=== PATIENT | female | born 1985 | race Caucasian/White ===

== ENCOUNTER 2017-01-11 06:11 | Inpatient (IN) | payer MEDICAID ==
[2017-01-08 10:50] LABS: APPEARANCE,URINE SLIGHTLY-CLOUDY; BILIRUBIN,URINE NEGATIVE (NEGATIVE); GLUCOSE, URINE NEGATIVE (NEGATIVE); KETONES,URINE NEGATIVE (NEGATIVE); LEUKOCYTE ESTERASE,URINE TRACE (NEGATIVE); NITRITE,URINE NEGATIVE (NEGATIVE); PROTEIN,URINE NEGATIVE (NEGATIVE); URINE SPECIFIC GRAVITY 1.005; UROBILINOGEN,URINE NEGATIVE mg/dL (<2.0)
[2017-01-08 11:00] LABS: URINE BARBITURATES SCREEN NEGATIVE; URINE METHADONE SCREEN NEGATIVE; URINE OPIATES LOW NEGATIVE; URINE PHENCYCLIDINE SCREEN NEGATIVE
[2017-01-08 12:28] LABS: ABSOLUTE EOSINOPHILS # (AUTO) 0.1 10^3/uL (0.0-0.6); ABSOLUTE LYMPHOCYTES (AUTO) 1.7 10^3/uL (0.5-4.7); ABSOLUTE MONOCYTES (AUTO) 0.8 10^3/uL (0.1-1.4); ABSOLUTE NEUT (AUTO) 6.9 10^3/uL (1.7-8.2); BASOPHILS % (AUTO) 0.3 % (0-2); EOSINOPHILS % (AUTO) 0.5 % (0-6); HEMATOCRIT 37.1 % (36.0-47.0); HEMOGLOBIN 12.3 g/dL (12.0-15.5); HGB HCT DIFFERENCE -0.2; LYMPHOCYTES % (AUTO) 18.2 % (13-45); MEAN CORPUSCULAR HGB CONC 33.2 g/dL (32.0-36.0); MEAN CORPUSCULAR VOLUME 93 fl (80-97); MONOCYTES % (AUTO) 8.1 % (3-13); RED BLOOD COUNT 3.97 10^6/uL (3.72-5.28); RED CELL DISTRIBUTION WIDTH 13.9 % (11.5-14.0); SEGMENTED NEUTROPHILS % (AUTO) 72.9 % (42-78); WHITE BLOOD COUNT 9.5 10^3/uL (4.0-10.5)
[2017-01-11] MEDS ORDERED: RINGERS SOLUTION,LACTATED 2,000 ML IV PRN (06:35)
[2017-01-11] MEDS ORDERED: CEFAZOLIN 1 GM/D5W RTU 1 GM/50 ML RTUPB IV PRN (06:45)
[2017-01-11] MEDS ORDERED: OXYTOCIN 10 UNIT/ML VIAL ONE (09:57)
[2017-01-11] MEDS ORDERED: PROPOFOL INJ 200 MG/20 ML VIAL IV ONE (09:58)
[2017-01-11] MEDS ORDERED: MORPHINE SULFATE 10 MG/ML INJ ONE (09:58)
[2017-01-11] MEDS ORDERED: MIDAZOLAM 2 MG/2 ML INJ ONE (09:58)
[2017-01-11] MEDS ORDERED: FENTANYL CITRATE INJ/PF 100 MCG/2 ML AMPUL ONE (10:36)
[2017-01-11] MEDS ORDERED: LIDOCAINE 2% INJ-PF (20 MG/ML) 10 ML AMPUL ONE ×3 (12:25→12:27)
[2017-01-11] MEDS ORDERED: PHENYLEPHRINE HCL INJ/PF 10 MG/1 ML SDV ONE (12:27)
[2017-01-11] MEDS ORDERED: METOCLOPRAMIDE HCL INJ/PF 10 MG/2 ML SDV ONE (12:27)
[2017-01-11] MEDS ORDERED: ONDANSETRON HCL INJ/PF 4 MG/2 ML SDV ONE (12:27)
[2017-01-11] MEDS ORDERED: ACETAMINOPHEN 100 ML IV ONE (12:32)
[2017-01-11] MEDS ORDERED: OXYTOCIN/NORMAL SALINE 0 UNIT/0 ML RTUINJ ONE (13:39)
[2017-01-11] MEDS ORDERED: OXYCODONE-ACETAMINOPHEN 5-325 MG TABLET PO PRN (13:59)
[2017-01-11] MEDS ORDERED: PROMETHAZINE HCL INJ 25 MG/1 ML VIAL IM PRN (13:59)
[2017-01-11] MEDS ORDERED: HYDROMORPHONE HCL INJ/PF 2 MG/ML AMPULE IV PRN (13:59)
[2017-01-11] MEDS ORDERED: DIPH/PERTUSS(ACELL)/TETANUS VAC/PF 0.5 ML SYR (>=10YO) IM PRN (13:59)
[2017-01-11] MEDS ORDERED: ACETAMINOPHEN 325 MG TABLET PO PRN (13:59)
[2017-01-11] MEDS ORDERED: OXYTOCIN/NORMAL SALINE 20 UNIT/1,000 ML RTUINJ INJ PRN (13:59)
[2017-01-11] MEDS ORDERED: MEASLES,MUMPS&RUBELLA VACC/PF 0.5 ML VIAL SUBCUT PRN (13:59)
[2017-01-11] MEDS ORDERED: KETOROLAC TROMETHAMINE INJ/PF 30 MG/1 ML SDV ONE (14:40)
[2017-01-11] MEDS ORDERED: METHYLERGONOVINE MALEATE INJ/PF 0.2 MG/1 ML AMPULE ONE (14:51)
[2017-01-11] MEDS ORDERED: METHYLERGONOVINE MALEATE INJ/PF 0.2 MG/1 ML AMPULE IM ONE (15:30)
[2017-01-11] MEDS: OXYCODONE-ACETAMINOPHEN 5-325 MG TABLET PO PRN (17:58)
[2017-01-11] MEDS: DOCUSATE SODIUM 100 MG CAPSULE PO SCH (17:59)
[2017-01-11] MEDS ORDERED: IBUPROFEN 800 MG TABLET PO SCH (18:00)
[2017-01-11] MEDS ORDERED: OXYTOCIN/NORMAL SALINE 20 UNIT/1,000 ML RTUINJ ONE (18:31)
[2017-01-11] MEDS: SIMETHICONE 80 MG TAB.CHEW PO PRN (18:35)
[2017-01-11] MEDS: KETOROLAC TROMETHAMINE INJ/PF 30 MG/1 ML SDV IV SCH (21:41)
[2017-01-12] MEDS: OXYCODONE-ACETAMINOPHEN 5-325 MG TABLET PO PRN ×3 (00:14→21:37)
[2017-01-12] MEDS ORDERED: LIDOCAINE 0.5% INJ-PF (5 MG/ML) 50 ML SDV SUBCUT PRN (05:00)
[2017-01-12] MEDS ORDERED: NORMAL SALINE 1000 ML (RENAL PATIENTS) IV PRN (05:00)
[2017-01-12] MEDS ORDERED: LACTATED RINGERS 1000 ML IV PRN (05:00)
[2017-01-12] MEDS: KETOROLAC TROMETHAMINE INJ/PF 30 MG/1 ML SDV IV SCH (06:01)
[2017-01-12 07:19] LABS: HEMATOCRIT 35.4 % (36.0-47.0); HEMOGLOBIN 11.7 g/dL (12.0-15.5); HGB HCT DIFFERENCE -0.3; MEAN CORPUSCULAR HEMOGLOBIN 30.9 pg (27.0-33.4); MEAN CORPUSCULAR VOLUME 94 fl (80-97); RED BLOOD COUNT 3.78 10^6/uL (3.72-5.28); RED CELL DISTRIBUTION WIDTH 13.7 % (11.5-14.0); WHITE BLOOD COUNT 11.8 10^3/uL (4.0-10.5)
--- NOTE | 2017-01-12 09:35 | PDOC PROGRESS REPORT ---
Subjective Progress Note for:: 01/12/17 Subjective:: Doing well. Physical Exam - Physical Exam Vital Signs: Temp Pulse Resp BP Pulse Ox 98.0 F 76 16 100/58 L 98 01/12/17 08:17 01/12/17 08:17 01/12/17 08:17 01/12/17 08:17 01/12/17 08:17 Intake & Output 01/11/17 01/12/17 01/13/17 06:59 06:59 06:59 Intake Total 4125 Output Total 2525 Balance 1600 Weight 98 kg General appearance: PRESENT: no acute distress Head exam: PRESENT: atraumatic - dressing dry Result Laboratory Results: 01/12/17 06:57 01/12/17 06:57 WBC 11.8 H RBC 3.78 Hgb 11.7 L Hct 35.4 L MCV 94 MCH 30.9 MCHC 33.0 RDW 13.7 Plt Count 192 Assessment & Plan - Diagnosis (1) S/P Is this a current diagnosis for this admission?: YesPlan: continue post operative care
[2017-01-12] MEDS: PRENATAL VITAMIN W-O CA NO5/FE FUMARATE/FA CAPSULE PO SCH (09:54)
[2017-01-12] MEDS: DOCUSATE SODIUM 100 MG CAPSULE PO SCH ×2 (09:54→17:23)
[2017-01-12] MEDS: SIMETHICONE 80 MG TAB.CHEW PO PRN (11:20)
[2017-01-12] MEDS: IBUPROFEN 800 MG TABLET PO SCH ×3 (12:10→23:27)
[2017-01-12] MEDS ORDERED: BISACODYL 10 MG SUPP.RECT PR PRN (19:03)
[2017-01-12] MEDS ORDERED: BISACODYL 10 MG SUPP.RECT PR ONE (19:30)
--- NOTE | 2017-01-12 19:44 | RADIOLOGY REPORT (SQ) ---
EXAM DESCRIPTION: ABDOMEN 2 VIEWS COMPLETED DATE/TIME: 01/12/2017 7:32 pm REASON FOR STUDY: abdominal pain O34.219 MATERNAL CARE FOR UNSP TYPE SCAR FROM PREVIOUS CELIA COMPARISON: None. NUMBER OF VIEWS: Two views. TECHNIQUE: Supine and erect/decubitus radiographic images of the abdomen acquired. LIMITATIONS: None. FINDINGS: FREE AIR: None. No abnormal gas collections. LUNG BASES: Clear. BOWEL GAS PATTERN: There is dilatation of both large and small bowel. Scattered air-fluid levels on the upright view. This most likely represents ileus. Surveillance films are recommended. CALCIFICATIONS: No suspicious calcifications. SOFT TISSUES: No gross mass or suggestion of organomegaly. HARDWARE: None in the abdomen. BONES: No acute fracture. No worrisome bone lesions. OTHER: No other significant finding. IMPRESSION: Probable ileus with dilated large and small bowel. Surveillance films are recommended. TECHNICAL DOCUMENTATION: JOB ID: [id number] [employer]- All Rights Reserved
[2017-01-13 06:02] LABS: ABSOLUTE EOSINOPHILS # (AUTO) 0.2 10^3/uL (0.0-0.6); ABSOLUTE LYMPHOCYTES (AUTO) 2.4 10^3/uL (0.5-4.7); ABSOLUTE MONOCYTES (AUTO) 0.9 10^3/uL (0.1-1.4); ABSOLUTE NEUT (AUTO) 8.3 10^3/uL (1.7-8.2); BASOPHILS % (AUTO) 0.4 % (0-2); EOSINOPHILS % (AUTO) 1.5 % (0-6); HEMATOCRIT 31.6 % (36.0-47.0); HEMOGLOBIN 10.6 g/dL (12.0-15.5); HGB HCT DIFFERENCE 0.2; LYMPHOCYTES % (AUTO) 20.2 % (13-45); MEAN CORPUSCULAR HEMOGLOBIN 31.1 pg (27.0-33.4); MEAN CORPUSCULAR HGB CONC 33.4 g/dL (32.0-36.0); MEAN CORPUSCULAR VOLUME 93 fl (80-97); MONOCYTES % (AUTO) 7.3 % (3-13); RED BLOOD COUNT 3.39 10^6/uL (3.72-5.28); RED CELL DISTRIBUTION WIDTH 13.8 % (11.5-14.0); SEGMENTED NEUTROPHILS % (AUTO) 70.6 % (42-78); WHITE BLOOD COUNT 11.7 10^3/uL (4.0-10.5)
[2017-01-13] MEDS: IBUPROFEN 800 MG TABLET PO SCH ×4 (06:11→23:54)
[2017-01-13 06:15] LABS: ANION GAP 6 (5-19); BLOOD UREA NITROGEN 10 mg/dL (7-20); CALCIUM 8.7 mg/dL (8.4-10.2); CARBON DIOXIDE 25 mmol/L (22-30); CHLORIDE 107 mmol/L (98-107); CREATININE RESULT 0.62 mg/dL (0.52-1.25); GLUCOSE 85 mg/dL (75-110); POTASSIUM 3.9 mmol/L (3.6-5.0); SODIUM 137.5 mmol/L (137-145)
[2017-01-13] MEDS: DOCUSATE SODIUM 100 MG CAPSULE PO SCH ×2 (09:28→17:41)
[2017-01-13] MEDS: PRENATAL VITAMIN W-O CA NO5/FE FUMARATE/FA CAPSULE PO SCH (09:28)
--- NOTE | 2017-01-13 09:51 | PDOC PROGRESS REPORT ---
Subjective-OB Subjective: Post Delivery Day: 2 31 year old. Denies any needs at this time, states lochia is stable, pain is well controlled, voiding without difficulty. Feeling a little gas. Physical Exam (OB) Vital Signs: Temp Pulse Resp BP Pulse Ox 97.4 F 68 16 103/55 L 98 01/13/17 08:16 01/13/17 08:16 01/13/17 08:16 01/13/17 08:16 01/13/17 08:16 Intake & Output 01/12/17 01/13/17 01/14/17 06:59 06:59 06:59 Intake Total 4125 Output Total 2525 Balance 1600 Weight 98 kg - PIH/Pre-Eclampsia Clonus: Negative - Dressing Removed: No Incision: Dressing Closure Type: opsite - Lochia Lochia Amount: Scant < 10 ml Lochia Color: Rubra/Red - Abdomen Description: Tender, Soft Hernia Present: No Fundal Description: Firm, Midline Fundal Height: u/u - u/2 Objective-Diagnostic Laboratory: 01/13/17 05:50 01/13/17 05:50 01/13/17 01/13/17 05:50 05:50 WBC 11.7 H RBC 3.39 L Hgb 10.6 L Hct 31.6 L MCV 93 MCH 31.1 MCHC 33.4 RDW 13.8 Plt Count 178 Seg Neutrophils % 70.6 Lymphocytes % 20.2 Monocytes % 7.3 Eosinophils % 1.5 Basophils % 0.4 Absolute Neutrophils 8.3 H Absolute Lymphocytes 2.4 Absolute Monocytes 0.9 Absolute Eosinophils 0.2 Absolute Basophils 0.0 Sodium 137.5 Potassium 3.9 Chloride 107 Carbon Dioxide 25 Anion Gap 6 BUN 10 Creatinine 0.62 Est GFR ( Amer) > 60 Est GFR (Non-Af Amer) > 60 Glucose 85 Calcium 8.7 Assessment and Plan(PN) - Assessment and Plan (1) Postoperative ileus Is this a current diagnosis for this admission?: YesPlan: ducolox (2) S/P Is this a current diagnosis for this admission?: YesPlan: routine post op care - Time Spent with Patient Time with patient: Less than 15 minutes Critical Time spent with patient: Less than 15 minutes Medications reviewed and adjusted accordingly: Yes - Disposition Anticipated Discharge: Home Within: within 24 hours
[2017-01-13] MEDS: OXYCODONE-ACETAMINOPHEN 5-325 MG TABLET PO PRN (16:30)
[2017-01-13] MEDS: SIMETHICONE 80 MG TAB.CHEW PO PRN (17:42)
[2017-01-14] MEDS: OXYCODONE-ACETAMINOPHEN 5-325 MG TABLET PO PRN ×2 (03:58→08:56)
[2017-01-14] MEDS: IBUPROFEN 800 MG TABLET PO SCH ×2 (05:53→11:46)
[2017-01-14] MEDS: DOCUSATE SODIUM 100 MG CAPSULE PO SCH (08:56)
[2017-01-14] MEDS: PRENATAL VITAMIN W-O CA NO5/FE FUMARATE/FA CAPSULE PO SCH (09:00)
--- NOTE | 2017-01-14 10:37 | PDOC PROGRESS REPORT ---
Subjective-OB Subjective: Post Delivery Day: 31 year old. Denies any needs at this time Pumping breasts, ready to go home, passing gas and had BM, pain improved, ambulating, voiding, taking regular diet well and liquids, breast/bottle feeding Physical Exam (OB) Vital Signs: Temp Pulse Resp BP Pulse Ox 98.3 F 88 16 115/78 95 01/14/17 07:53 01/14/17 07:53 01/14/17 07:53 01/14/17 07:53 01/14/17 07:53 - PIH/Pre-Eclampsia Clonus: Negative - Dressing Removed: No Incision: Dressing Closure Type: opsite - Lochia Lochia Amount: Scant < 10 ml Lochia Color: Rubra/Red - Abdomen Description: Tender, Soft Hernia Present: No Fundal Description: Firm, Midline Fundal Height: u/u - u/2 Objective-Diagnostic Laboratory: 01/13/17 05:50 01/13/17 05:50 Assessment and Plan(PN) - Assessment and Plan (1) S/P Is this a current diagnosis for this admission?: Yes (2) Postoperative ileus Is this a current diagnosis for this admission?: Yes - Time Spent with Patient Time with patient: Less than 15 minutes Medications reviewed and adjusted accordingly: Yes - Disposition Anticipated Discharge: Home Within: Other - home today
--- NOTE | 2017-01-14 10:43 | PDOC DISCHARGE SUMMARY ---
Final Diagnosis Discharge Date: 01/14/17 - Final Diagnosis (1) S/P Is this a current diagnosis for this admission?: Yes (2) Postoperative ileus Is this a current diagnosis for this admission?: Yes Discharge Data - Discharge Medication Home Medications: Pnv No.122/Iron/Folic Acid [ Multi Tablet] 1 tab PO DAILY 01/08/17 Ibuprofen [Motrin 800 mg Tablet] 800 mg PO Q6 #60 tablet 01/14/17 Oxycodone HCl/Acetaminophen [Percocet 5-325 mg Tablet] 1 tab PO Q4HP PRN #30 tablet 01/14/17 Pnv W-O Ca No5/Fe Fumarate/FA [-U Multiple Vitamin Capsule] 1 cap PO DAILY #0 capsule 01/14/17 Gestational Age: 39 Reason(s) for Admission: Ceasarean Section-Repeat Procedures: NST, Ultrasound Intrapartum Procedure(s): : Low Cervical, Transverse - [place] Data Baby 1 Female Home with Mother: Yes - Diagnosis Test Laboratory: Temp Pulse Resp BP Pulse Ox 98.3 F 88 16 115/78 95 01/14/17 07:53 01/14/17 07:53 01/14/17 07:53 01/14/17 07:53 01/14/17 07:53 01/08/17 01/08/17 01/12/17 09:57 11:22 06:57 RBC 3.97 3.78 Hgb 12.3 11.7 L Hct 37.1 35.4 L Urine Opiates Screen NEGATIVE 01/13/17 05:50 RBC 3.39 L Hgb 10.6 L Hct 31.6 L Urine Opiates Screen - Discharge information/Instructions Discharge Activity: Activity As Tolerated, No Lifting Over 10 Pounds, No Lifting /Push/Pulling, Pelvic Rest Discharge Diet: As Tolerated Disposition: HOME, SELF-CARE Follow up with: [facility] in: 1, Weeks - pt has appt on Wednesday
[2017-01-14 11:46] VITALS: BP 110/68
--- NOTE | 2017-02-23 09:24 | OPERATIVE REPORT E ---
Operative Report NAME: ORQUIDEA HARRIS : 1985 AGE: 31Y DATE OF SURGERY: 01/11/2017 ROOM: 227 PREOPERATIVE DIAGNOSES: 1. A 39-WEEK INTRAUTERINE . 2. HISTORY OF SECTION; FOR REPEAT. POSTOPERATIVE DIAGNOSES: 1. A 39-WEEK INTRAUTERINE . 2. HISTORY OF SECTION; FOR REPEAT. SURGEON: Darryl Mills D.O. CLINICAL STATISTICAL PROGRAMMER: None. PROCEDURE: Repeat low transverse section. ANESTHESIA: Spinal. COMPLICATIONS: None. ESTIMATED BLOOD LOSS: 600 mL. PATHOLOGY: Placenta. FINDINGS: 1. A viable female infant at 10:54 a.m. on 01/11/2017. Apgars 8 at one minute; 9 at five minutes. 2. Normal appearing bilateral fallopian tubes and ovaries. DESCRIPTION OF PROCEDURE: Patient was taken to the operating room where spinal anesthesia was administered. Once this was done, she was placed in a in a dorsal supine position upon the operating room table with a leftward tilt. She was then prepped and draped in normal sterile fashion. A scalpel was then used to make a Pfannenstiel skin incision. The skin incision was carried down through the subcutaneous tissues to the layer of the fascia. Fascia was then incised midline. Fascial incision was then extended bilaterally using the Bovie cautery. The superior fascial edge was grasped by Shell clamps, elevated, and rectus muscles dissected off sharply and bluntly. Attention was then turned to the inferior fascial edge, which was grasped with Shell clamps, elevated, and rectus muscles dissected off sharply and bluntly. Rectus muscles were then in midline. Peritoneum identified and entered bluntly with the surgeon's hand. Bladder blade was inserted. A scalpel was then used to make a low-transverse hysterotomy incision. The was found to be in the cephalic position and delivered through this incision without difficulty and atraumatically. The nose and mouth were suctioned. The cord was clamped cut and the infant was handed off to the waiting nurses. Cord blood was obtained. The placenta was then manually removed from the uterus. The uterus was then exteriorized and cleared of all clots and debris. The hysterotomy incision was then reapproximated using 2 layers of 1-0 Vicryl in a running locking fashion. Following closure of the second layer, excellent hemostasis was noted. The uterus was then returned to the abdomen. Again, hysterotomy incision was reinspected and found to have excellent hemostasis. Rectus muscles were then reapproximated using 1-0 Vicryl interrupted sutures. The fascia was then closed using 1-0 Vicryl in a running nonlocking fashion. The subcutaneous space was then made hemostatic using Bovie cautery, and the skin was then closed with absorbable radha, covered with an OpSite, and with a pressure dressing. At this point in time the procedure was terminated. All sponge, lap, and needle counts were correct x2. Patient tolerated the procedure well. Patient was taken to the recovery room in stable condition. DICTATING PHYSICIAN: Darryl Mills DO [id number] PHY#: [id number] ID: [id number] JOB#: [id number] ACCT: [id number] cc:Darryl Mills D.O. >
--- NOTE | 2017-03-11 09:15 | PDOC DELIVERY SUMMARY ---
Delivery Summary - Maternal Hx : III Hx # Term Pregnancies: 2 Hx # Pregnancies: 0 Hx Total # of Abortions (Sponateous & Elective): 0 MANJULA: 01/17/17 Gestational Age: 39 Ruptured Membranes: AROM Fluids: Clear - Delivery Presentation: Vertex Heart Rate Monitoring: Done Pre-Operatively Support Person Present: Yes Location: OR : Scheduled Placenta: Within Normal Limits Delivery of Placenta Date: 01/11/17 Delivery of Placenta Time: 10:56 - Medications Type of Anesthesia:: Epidural - Infant Assess and Care Baby 1 Female Delivery of Infant Date: 01/11/17 Delivery of Time: 10:54 at 1 minute: 9 at 5 minutes: 9 Preprinted Number On Band: [id number] Skin to Skin: No To Nursery At: 11:00 Mode of Transport: Bassinet - Delivery Personnel Nursery RN: RIMMA GLOVER
== END 2017-01-14 15:45 | disposition home or self-care (01) | DRG 765 ==
LOC: 2S 06:11
PROVIDERS: ADMIT Obstetrics & Gynecology; ATTEND Obstetrics & Gynecology
PROC: 4A1HXCZ Monitoring of Products of Conception, Cardiac Rate, External Approach (ICD-10-PCS; 2017-01-11)
PROC: 10D00Z1 Extraction of Products of Conception, Low, Open Approach (ICD-10-PCS; principal; 2017-01-11 09:15)
DX: O34.211 Maternal care for low transverse scar from previous cesarean delivery (principal); K56.7 Ileus, unspecified; O75.4 Other complications of obstetric surgery and procedures; F17.200 Nicotine dependence, unspecified, uncomplicated; O99.334 Smoking (tobacco) complicating childbirth; F32.9 Major depressive disorder, single episode, unspecified; F41.9 Anxiety disorder, unspecified; Z3A.39 39 weeks gestation of pregnancy; Z37.0 Single live birth
CPT/HCPCS: 1961; 36415; 74020; 80048; 80307; 81001; 85025; 85027; 86850; 86900; 86901; 94799; J0131; J1170; J1885; J2210; J2250; J2270; J2370; J2405; J2590; J2704; J2765; J3010; J3490

== ENCOUNTER → 2017-07-17 | Outpatient (CLI) | payer MEDICAID | LOC: LAB 11:35 | PROVIDERS: ATTEND Emergency Medicine | DX: E86.0 Dehydration (principal); N39.0 Urinary tract infection, site not specified; R10.9 Unspecified abdominal pain | CPT/HCPCS: 87086 ==

== ENCOUNTER → 2017-07-27 | Outpatient (CLI) | payer MEDICAID ==
--- NOTE | 2017-07-27 15:36 | RADIOLOGY REPORT (SQ) ---
EXAM DESCRIPTION: CT ABD/PELVIS WITH IV ONLY COMPLETED DATE/TIME: 07/27/2017 3:09 pm REASON FOR STUDY: GROSS HEMATURIA R31.0 GROSS HEMATURIA COMPARISON: Abdominal films 01/12/2017 TECHNIQUE: CT scan of the abdomen and pelvis performed using helical scanning technique with dynamic intravenous contrast injection. No oral contrast. Images reviewed with lung, soft tissue, and bone windows. Reconstructed coronal and sagittal MPR images reviewed. Delayed images for evaluation of the urinary system also acquired. All images stored on PACS. All CT scanners at this facility use dose modulation, iterative reconstruction, and/or weight based d osing when appropriate to reduce radiation dose to as low as reasonably achievable (ALARA). [facility]: Dose Right [facility]: CareDose [facility]: Dose Right [facility]: Teradose 4D [facility]: Organizer CONTRAST TYPE AND DOSE: contrast/concentration: Isovue 370.00 mg/ml; Total Contrast Delivered: 97.0 ml; Total Saline Delivered: 72.0 ml RENAL FUNCTION: Creatinine 0.8 RADIATION DOSE: CT Rad equipment meets quality standard of care and radiation dose reduction techniq ues were employed. CTDIvol: 19.0 - 20.4 mGy. DLP: 1909 mGy-cm.. LIMITATIONS: None. FINDINGS: LOWER CHEST: No significant findings. No nodules or infiltrates. LIVER: Normal size. No masses. No dilated ducts. SPLEEN: Normal size. No focal lesions. PANCREAS: No masses. No significant calcifications. No adjacent inflammation or peripancreatic fluid collections. Pancreatic duct not dilated. GALLBLADDER: No identified stones by CT criteria. No inflammatory changes to suggest cholecystitis. ADRENAL GLANDS: No significant masses or asymmetry. RIGHT KIDNEY AND URETER: No solid masses. 1.3 cm calculus in the right renal pelvis, 1,073 Hounsfie ld units. This is at the ureteropelvic junction. There is moderate right-sided hydronephrosis. A 2 nd, smaller 7 mm stone is present in the upper right ureter at the level of the right L3 transverse p rocess best shown on axial image 41 and coronal image 47. No hydroureter. LEFT KIDNEY AND URETER: No solid masses. No significant calcifications. No hydronephrosis or hydr oureter. AORTA AND VESSELS: No aneurysm. No dissection. Renal arteries, SMA, celiac without stenosis. RETROPERITONEUM: No retroperitoneal adenopathy, hemorrhage or masses. BOWEL AND PERITONEAL CAVITY: No masses or inflammatory changes. No free fluid or peritoneal masses. APPENDIX: Normal. PELVIS: Normal size uterus and ovaries. 2.5 cm cyst left ovary, coronal image 45. No free fluid. No rmal bladder. ABDOMINAL WALL: No masses. No hernias. BONES: No significant or acute findings. OTHER: Report called to Cori Billy NP 1520 hours 07/27/2017. IMPRESSION: 1.3 cm right renal pelvis stone at the ureteropelvic junction 7 mm stone in the right upper ureter Moderate right hydronephrosis TECHNICAL DOCUMENTATION: JOB ID: [id number] Quality ID # [id number]: Final reports with documentation of one or more dose reduction techniques (e.g., Au tomated exposure control, adjustment of the mA and/or kV according to patient size, use of iterative reconstruction technique) 2010 [employer]- All Rights Reserved
== END ==
LOC: RAD 14:04
PROVIDERS: ATTEND Nurse Practitioner
DX: R31.0 Gross hematuria (principal)
CPT/HCPCS: 74177; 82565

== ENCOUNTER 2017-07-28 21:19 | Emergency (ER) | payer MEDICAID ==
[2017-07-28 21:23] VITALS: BP 114/70
== END 2017-07-28 23:00 | disposition left against medical advice (07) ==
LOC: ER 21:19
DX: Z53.21 Procedure and treatment not carried out due to patient leaving prior to being seen by health care provider (principal)

== ENCOUNTER → 2017-08-17 | Outpatient (CLI) | payer MEDICAID ==
--- NOTE | 2017-08-17 12:47 | RADIOLOGY REPORT (SQ) ---
EXAM DESCRIPTION: KUB COMPLETED DATE/TIME: 08/17/2017 9:34 am REASON FOR STUDY: CALCULUS OF KIDNEY N20.0 CALCULUS OF KIDNEY COMPARISON: Abdominal films 01/12/2017 CT abdomen pelvis 07/27/2017 NUMBER OF VIEWS: One view. TECHNIQUE: Supine radiographic image of the abdomen acquired. LIMITATIONS: None. FINDINGS: Since the prior study, patient has undergone a right-sided double-J ureteral stent placeme nt. Proximal and distal are in good positioning. Adjacent to the distal loop of the double-J stent, multiple tiny faintly radiopaque stone fragments a re present in the distal right ureter. There are calcified pelvic phleboliths present. BOWEL GAS PATTERN: Normal bowel gas pattern. No dilated loops. CALCIFICATIONS: As above SOFT TISSUES: No gross mass or suggestion of organomegaly. HARDWARE: Right double-J stent in good positioning BONES: Sclerosis at the SI joints bilaterally OTHER: No other significant finding. IMPRESSION: Right double-J stent in good positioning. Multiple faintly radiopaque with stone fragme nts are present in the distal right ureter adjacent to the stent TECHNICAL DOCUMENTATION: JOB ID: [id number] [employer]- All Rights Reserved
== END ==
LOC: OD 09:11
PROVIDERS: ATTEND Urology
DX: N20.0 Calculus of kidney (principal)
CPT/HCPCS: 74018

== ENCOUNTER 2019-07-08 15:18 | Emergency (ER) | payer BC, MEDICAID ==
[2019-07-08 15:24] VITALS: BP 134/78
--- NOTE | 2019-07-08 15:34 | ER Document Report ---
HPI - HPI Time Seen by Provider: 07/08/19 15:26 Pain Level: 0 Notes: Otherwise healthy 33-year-old female presenting to the emergency department chief complaint of request for medication refill. Patient takes Xanax 0.5 mg tablets. 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 Patient has no acute complaints today. - REPRODUCTIVE Reproductive: DENIES: : Past Medical History - General Information source: Patient - Social History Smoking Status: Current Every Day Smoker Chew tobacco use (# tins/day): No Frequency of alcohol use: None Drug Abuse: None Family History: Reviewed & Not Pertinent Patient has suicidal ideation: No Patient has homicidal ideation: No Renal/ Medical History: Reports: Hx Kidney Stones. Denies: Hx Ovarian Cysts, Hx Pelvic Inflammatory Disease Malignancy Medical History: Denies: Hx Breast Cancer, Hx Cervical Cancer, Hx Ovarian Cancer GI Medical History: Reports: Hx Gastroesophageal Reflux Disease. Denies: Hx H iatal Hernia, Hx Ulcer Psychiatric Medical History: Reports: Hx Anxiety, Hx Depression Denies: Hx Bipolar Disorder, Hx Post Traumatic Stress Disorder, Hx Schizophrenia Surgical Hx: Negative Vertical Provider Document - CONSTITUTIONAL Notes: PHYSICAL EXAMINATION: GENERAL: Well-appearing, well-nourished and in no acute distress. HEAD: Atraumatic, normocephalic. EYES: Pupils equal round extraocular movements intact, conjunctiva are normal. ENT: Nares patent NECK: Normal range of motion LUNGS: No respiratory distress Musculoskeletal: Normal range of motion NEUROLOGICAL: Normal speech, normal gait. PSYCH: Normal mood, normal affect. SKIN: Warm, Dry, normal turgor, no rashes or lesions noted. - INFECTION CONTROL TRAVEL OUTSIDE OF THE [place] IN LAST 30 DAYS: No Course - Re-evaluation Re-evalutation: I called and spoke with patient's pharmacy, they verified that they do have an active prescription on file and that the prescription was supposed to be filled a few days ago. The prescription is written for Xanax 0.5 mg tablets. She is supposed to take 1 to 2 tablets up to 3 times a day. They have been unable to fill this as they have a back order on this dosage. I will write a prescription at this time for 1 mg Xanax tablets total of #6 until patient can speak with her main prescriber to have them fixed the prescription. - Vital Signs Vital signs: Temp Pulse Resp BP Pulse Ox 98 F 73 22 H 134/78 H 99 07/08/19 15:22 07/08/19 15:22 07/08/19 15:22 07/08/19 15:22 07/08/19 15:22 Discharge - Discharge Clinical Impression: Medication refill Condition: Stable Disposition: HOME, SELF-CARE Additional Instructions: I called and spoke to the pharmacy, they have a national back order only 0.5 mg tablets of her medication. They do have the 1 mg tablets in stock. Please call your prescriber and have them change her prescription to 1 mg tablets. I written you enough to get through until mid day on Wednesday. Prescriptions: Alprazolam 1 mg PO TID #6 tablet Referrals: MELISSA RICHARD, [facility] [Primary Care Provider] - Follow up as needed
== END 2019-07-08 15:40 | disposition home or self-care (01) ==
LOC: ER 15:18
DX: Z76.0 Encounter for issue of repeat prescription (principal)
CPT/HCPCS: 99281

== ENCOUNTER → 2020-06-25 | Outpatient (CLI) | payer MEDICAID ==
--- NOTE | 2020-06-25 10:04 | RADIOLOGY REPORT (SQ) ---
EXAM DESCRIPTION: CT ABD/PELVIS NO ORAL OR IV IMAGES COMPLETED DATE/TIME: 06/25/2020 7:36 am REASON FOR STUDY: RENAL STONE N20.0 CALCULUS OF KIDNEY COMPARISON: CT of the abdomen and pelvis with contrast from 07/27/2017. TECHNIQUE: CT scan of the abdomen and pelvis performed without intravenous or oral contrast. Images reviewed with lung, soft tissue, and bone windows. Reconstructed coronal and sagittal MPR images revi ewed. All images stored on PACS. All CT scanners at this facility use dose modulation, iterative reconstruction, and/or weight based d osing when appropriate to reduce radiation dose to as low as reasonably achievable (ALARA). [facility]: Dose Right [facility]: CareDose [facility]: Dose Right [facility]: Teradose 4D [facility]: [employer] RADIATION DOSE: CT Rad equipment meets quality standard of care and radiation dose reduction techniq ues were employed. CTDIvol: 19.8 mGy. DLP: 978 mGy-cm. LIMITATIONS: None. FINDINGS: LOWER CHEST: No acute abnormality. NON-CONTRASTED LIVER, SPLEEN, ADRENALS: Evaluation is limited by the absence of intravenous contrast. There is no evidence hepatic steatosis. The spleen is normal in size. There is no adrenal mass. PANCREAS: No acute gross abnormality of the pancreas. GALLBLADDER: No acute gross abnormality of the gallbladder. RIGHT KIDNEY AND URETER: Evaluation is limited by the absence of intravenous contrast. There is no h ydronephrosis, nephrolithiasis, hydroureter or ureterolithiasis. \LEFT KIDNEY AND URETER: Evaluation is limited by the absence of intravenous contrast. There is no h ydronephrosis, nephrolithiasis, hydroureter or ureterolithiasis. AORTA AND RETROPERITONEUM: No aneurysm of the abdominal aorta. No retroperitoneal adenopathy, hemorr venice or mass. BOWEL AND PERITONEAL CAVITY: No bowel obstruction, bowel wall thickening or pericolonic/ perienteric inflammation. No mesenteric adenopathy, free intraperitoneal fluid or mesenteric/ omental inflammati on. APPENDIX: Normal. PELVIS, BLADDER, AND ABDOMINAL WALL: No abnormality of the uterus or adnexa that is apparent on CT. There is no cystolithiasis or abdominal wall mass/hernia. BONES: The sclerosis on the iliac size of the SI joints could represent osteitis condensans ilii. OTHER: No other findings. IMPRESSION: No acute intra-abdominal abnormality. In particular there is no hydronephrosis, nephrol ithiasis, hydroureter or ureterolithiasis. COMMENT: Quality ID # [id number]: Final reports with documentation of one or more dose reduction techniques (e.g., Automated exposure control, adjustment of the mA and/or kV according to patient size, use of iterative reconstruction technique) TECHNICAL DOCUMENTATION: JOB ID: [id number] 2010 [employer]- All Rights Reserved Reading location - IP/workstation name: [email or web address]
== END ==
LOC: RAD 07:29
PROVIDERS: ATTEND Nurse Practitioner
DX: N20.0 Calculus of kidney (principal)
CPT/HCPCS: 74176